=== PATIENT | male | born 1970 | race Two or more races ===

== ENCOUNTER 2020-11-20 09:23 | Emergency (ER) | payer OTHER ==
[~2020-11-20] VITALS: Ht 175.3 cm; Wt 80.5 kg
--- NOTE | 2020-11-20 09:55 | NUR ---
PT AMBULATORY TO ROOM 27 W/ C/O RASH ON HIS WHOLE BODY X FEW WEEKS. STATES HE CURRENTLY LIVES AT THE HOMELESS ASSISTED. PT RESTING ON [employer]. NADN. MONITORS APPLIED FOR HR.
[2020-11-20 10:47] VITALS: BP 123/78
--- NOTE | 2020-11-20 10:48 | NUR ---
PT RESTING ON GURNEY. BRENNAN. CHART PLACED FOR RECHECK.
== END 2020-11-20 11:10 | disposition home or self-care (01) ==
LOC: ED 11:02
DX: B86 Scabies (principal); R21 Rash and other nonspecific skin eruption; F17.210 Nicotine dependence, cigarettes, uncomplicated
CPT/HCPCS: 99283; 99406; Q0177

== ENCOUNTER 2020-12-29 11:17 | Emergency (ER) | payer OTHER ==
[~2020-12-29] VITALS: Ht 175.3 cm; Wt 75.6 kg
--- NOTE | 2020-12-29 11:44 | NUR ---
Pt to decon to shower self.
--- NOTE | 2020-12-29 12:17 | NUR ---
lice and bed bug decon per triage.as
[2020-12-29] MEDS ORDERED: SODIUM CHLORIDE FLUSH 10ML SYR IVF ONE (13:00)
[2020-12-29] MEDS ORDERED: SODIUM CHLORIDE 0.9% 1,000ML IVBOLUS ONE (13:00)
[2020-12-29 13:46] LABS: BASOPHILS % (AUTO) 1 % (0-1); EOSINOPHILS % (AUTO) 2 % (1-7); LYMPHOCYTES % (AUTO) 15 % (22-44); MEAN CORPUSCULAR HGB CONC 33.2 g/dL (33.2-36.2); MEAN PLATELET VOLUME 6.7 fL (7.4-10.4); MONOCYTES % (AUTO) 6 % (2-9); NEUTROPHILS % (AUTO) 76 % (42-75); PLATELET COUNT 475 x10^3/uL (130-400); RED BLOOD COUNT 3.43 x10^6/uL (4.38-5.82); RED CELL DISTRIBUTION WIDTH 13.5 % (9.4-14.8)
[2020-12-29 13:47] LABS: MD NO
[2020-12-29 13:52] LABS: ALBUMIN 2.7 g/dL (3.4-5.0); ANION GAP 4 mmol/L (5-15); CALCIUM 8.7 mg/dL (8.5-10.1); CHLORIDE 103 mmol/L (98-107)
[2020-12-29 13:57] LABS: ALANINE AMINOTRANSFERASE 25 U/L (12-78); ALKALINE PHOSPHATASE 78 U/L (45-117); BILIRUBIN,TOTAL 0.4 mg/dL (0.2-1.0); CREATININE 0.85 mg/dL (0.7-1.3); TOTAL PROTEIN 9.1 g/dL (6.4-8.2)
--- NOTE | 2020-12-29 13:57 | NUR ---
ASSUMED CARE OF PT FROM ABRAHAN CLAUDIO.
--- NOTE | 2020-12-29 13:57 | NUR ---
report to pelon manning. as
[2020-12-29 15:54] VITALS: BP 110/71
== END 2020-12-29 15:56 | disposition home or self-care (01) ==
LOC: ED 11:42
DX: L01.01 Non-bullous impetigo (principal); Z20.822 Contact with and (suspected) exposure to COVID-19; J02.9 Acute pharyngitis, unspecified; R50.9 Fever, unspecified; R05 Cough; R06.02 Shortness of breath; F17.200 Nicotine dependence, unspecified, uncomplicated
CPT/HCPCS: 36415; 71045; 80053; 85025; 87081; 87880; 99283; U0003